=== PATIENT | female | born 1955 | race Caucasian/White ===

== ENCOUNTER 2018-04-14 15:04 | Outpatient (CLI) | payer BC | END 2018-04-14 15:05 | disposition home or self-care (01) | LOC: BICMAMMO 15:04 | PROVIDERS: ATTEND Obstetrics & Gynecology | DX: Z12.31 Encounter for screening mammogram for malignant neoplasm of breast (principal); R92.1 Mammographic calcification found on diagnostic imaging of breast | CPT/HCPCS: 77063; 77067 ==

== ENCOUNTER 2021-03-25 09:35 | Outpatient (CLI) | payer MEDICARE, BC | END 2021-03-25 09:36 | disposition home or self-care (01) | LOC: TBSIIMAG 09:35 | PROVIDERS: ATTEND Surgery | DX: M47.26 Other spondylosis with radiculopathy, lumbar region (principal); R20.8 Other disturbances of skin sensation; Z98.890 Other specified postprocedural states; M48.061 Spinal stenosis, lumbar region without neurogenic claudication | CPT/HCPCS: 72110; 72148 ==

== ENCOUNTER 2021-12-05 09:40 | Outpatient (CLI) | payer MEDICARE, BC ==
[2021-12-05 11:04] LABS: Hemoglobin 13.9 g/dL (12.0-15.5); Mean Corpuscular HGB CONC 32.5 g/dL (32.0-36.0); Mean Corpuscular Hemoglobin 30.4 pg (27.0-33.0); Mean Corpuscular Volume 93.7 fl (81.6-98.3); Mean Platelet Volume 9.5 fl (7.4-10.4); Platelet Count 335 10x3/uL (150-450); RBC Distribution Width 13.3 % (11.5-14.5); Red Blood Cell (RBC) Count 4.57 10x6/uL (3.90-5.03); White Blood Cell (WBC) Count 14.8 10x3/uL (3.5-10.5)
[2021-12-05 11:07] LABS: Anion Gap 14 mmol/L (10-20); BUN (Urea Nitrogen) 9 mg/dL (9.8-20.1); Calc. Creatinine Clearance 0 mL/min (70-130); Calcium 9.3 mg/dL (7.8-10.44); Carbon Dioxide 32 mmol/L (23-31); Chloride 97 mmol/L (98-107); Glucose 93 mg/dL (80-115); Potassium 4.2 mmol/L (3.5-5.1); Sodium 139 mmol/L (136-145)
[2021-12-05 11:09] LABS: INR-International Normal Ratio 0.9; PTT 28.1 sec (22.0-33.0); Prothrombin Time 9.7 sec (9.5-12.1)
[2021-12-05 20:11] LABS: SARS-CoV-2 PCR by NAA Not Detected (NotDetected)
== END 2021-12-05 09:41 | disposition home or self-care (01) ==
LOC: LABBT 09:40
PROVIDERS: ATTEND Surgery
DX: Z01.818 Encounter for other preprocedural examination (principal); M54.16 Radiculopathy, lumbar region; M48.062 Spinal stenosis, lumbar region with neurogenic claudication; Z20.822 Contact with and (suspected) exposure to COVID-19
CPT/HCPCS: 80048; 85027; 85610; 85730; 93005; U0003; U0005; 93010

== ENCOUNTER 2021-12-10 05:47 | Observation (INO) | payer MEDICARE, BC ==
[2021-12-10] MEDS ORDERED: Thrombin 5000 UNITS/5 ML VIAL ONE (06:46)
[2021-12-10] MEDS ORDERED: fentaNYL Citrate/PF 100 MCG/2 ML SYRINGE ONE ×2 (06:52→09:31)
[2021-12-10] MEDS ORDERED: Midazolam HCl 2 mg/2 ml Vial ONE (06:52)
[2021-12-10] MEDS ORDERED: HYDROmorphone 0.5 MG/0.5 ML SYRINGE ONE (06:52)
[2021-12-10] MEDS ORDERED: Famotidine/PF 20 mg/2ml Vial ONE (06:52)
[2021-12-10] MEDS ORDERED: ceFAZolin (BATCH) 2 GM/100 ML BAG ONE (07:09)
[2021-12-10] MEDS ORDERED: Lidocaine 1% PF 5 ML VIAL ONE (07:24)
[2021-12-10] MEDS ORDERED: PROPOFOL 200 MG/20 ML VIAL ONE (07:24)
[2021-12-10] MEDS ORDERED: Ondansetron PF 4 MG/2 ML Vial ONE (07:24)
[2021-12-10] MEDS ORDERED: Rocuronium Bromide 10 MG/ML (10ML VIAL) ONE (07:24)
[2021-12-10] MEDS ORDERED: Glycopyrrolate 0.2 MG/ML 5 ML SYRINGE ONE (07:24)
[2021-12-10] MEDS ORDERED: ePHEDrine 50 MG/ML VIAL ONE (07:24)
[2021-12-10] MEDS ORDERED: Dexamethasone 20 MG/5 ML VIAL ONE (07:24)
[2021-12-10] MEDS ORDERED: diphenhydrAMINE 50 MG/ML VIAL ONE ×2 (07:24→10:53)
[2021-12-10] MEDS ORDERED: SUGAMMADEX SODIUM 200 MG/2 ML VIAL ONE ×2 (09:42→09:43)
[2021-12-10] MEDS ORDERED: Acetaminophen/Codeine 30-300mg Tablet PO PRN (09:48)
[2021-12-10] MEDS ORDERED: traMADol HCl 50 MG TAB PO PRN (09:48)
[2021-12-10] MEDS ORDERED: Acetaminophen 325 MG TAB PO PRN (09:48)
[2021-12-10] MEDS ORDERED: Promethazine HCl 12.5 MG in Sodium Chloride 0.9% 50 ML IVPB PRN (09:51)
[2021-12-10] MEDS ORDERED: Promethazine HCl 25 MG/ML VIAL IM PRN (10:02)
[2021-12-10] MEDS ORDERED: Meperidine HCl/PF 25 MG/ML VIAL SLOW IVP PRN (10:02)
[2021-12-10] MEDS ORDERED: Ketorolac Tromethamine 30 MG/ML VIAL IVP PRN (10:02)
[2021-12-10] MEDS ORDERED: Promethazine HCl 25 MG/ML VIAL IVPB PRN (10:02)
[2021-12-10] MEDS ORDERED: HYDROmorphone 2 MG/ML VIAL SLOW IVP PRN (10:02)
[2021-12-10] MEDS ORDERED: Ondansetron HCl/PF 4 MG/2 ML Vial IVP PRN (10:02)
[2021-12-10] MEDS ORDERED: HYDROmorphone 2 MG/ML VIAL ONE (10:12)
[2021-12-10] MEDS ORDERED: Meperidine HCl/PF 25 MG/ML VIAL ONE (10:53)
[2021-12-10 12:34] VITALS: BMI 27.6
[2021-12-10] MEDS: HYDROcodone/Acetaminophen 7.5/325 mg Tablet PO PRN (13:20)
[2021-12-10] MEDS: Sodium Chloride 0.9% 1,000 ML IV SCH (13:21)
[2021-12-10] MEDS ORDERED: Milk Of Magnesia 30 ML UDCUP PO PRN (13:43)
[2021-12-10] MEDS ORDERED: Polyethylene Glycol 3350 17 GM Packet PO PRN (13:43)
[2021-12-10] MEDS ORDERED: Bisacodyl 5 MG TAB PO PRN (13:43)
[2021-12-10] MEDS ORDERED: Docusate 100 MG CAP PO SCH (13:45)
[2021-12-10] MEDS ORDERED: ceFAZolin 2 GM/Dextrose 50 ML 2 GM in Premix Bag 1 BAG IVPB SCH (15:00)
[2021-12-10] MEDS: tiZANidine HCl 4 MG TAB PO PRN (15:42)
[2021-12-10] MEDS: ceFAZolin (BATCH) 2 GM in Premix Bag 1 BAG IVPB SCH (16:26)
[2021-12-10] MEDS: Morphine 2 MG/ML VIAL SLOW IVP PRN (16:32)
[2021-12-10] MEDS: Docusate 100 MG CAP PO SCH (20:28)
[2021-12-11] MEDS: ceFAZolin (BATCH) 2 GM in Premix Bag 1 BAG IVPB SCH (00:12)
[2021-12-11] MEDS: Morphine 2 MG/ML VIAL SLOW IVP PRN (00:12)
[2021-12-11] MEDS: tiZANidine HCl 4 MG TAB PO PRN ×2 (00:12→09:01)
[2021-12-11] MEDS: Sodium Chloride 0.9% 1,000 ML IV SCH (05:12)
[2021-12-11] MEDS ORDERED: Levothyroxine Sodium 75 MCG TAB PO SCH (06:00)
[2021-12-11] MEDS: HYDROcodone/Acetaminophen 7.5/325 mg Tablet PO PRN ×2 (06:39→15:34)
[2021-12-11] MEDS ORDERED: Atenolol 50 MG TAB PO SCH (09:00)
[2021-12-11] MEDS ORDERED: Lisinopril/Hydrochlorothiazide 20/25 mg Tablet PO SCH (09:00)
[2021-12-11] MEDS ORDERED: Cholecalciferol 1,000 UNITS (25 MCG) TAB PO SCH (09:00)
[2021-12-11] MEDS: Docusate 100 MG CAP PO SCH (09:00)
[2021-12-11] MEDS ORDERED: Escitalopram Oxalate 20 mg Tablet PO SCH (09:00)
[2021-12-11] MEDS ORDERED: Multivit, Therapeutic 1 TAB PO SCH (09:00)
[2021-12-11] MEDS ORDERED: Loratadine 10 MG TAB PO SCH (09:00)
[2021-12-11 13:19] VITALS: BP 133/57; TEMP 98.2
[2021-12-11] MEDS ORDERED: Atorvastatin Calcium 10 MG TAB PO SCH (21:00)
== END 2021-12-11 16:57 | disposition home or self-care (01) ==
LOC: SDC 05:47 → MSONC 12:24
PROVIDERS: ADMIT Surgery; ATTEND Surgery
PROC: 01NB0ZZ Release Lumbar Nerve, Open Approach (ICD-10-PCS; principal; 2021-12-10)
PROC: 0SB20ZZ Excision of Lumbar Vertebral Disc, Open Approach (ICD-10-PCS; 2021-12-10)
DX: M48.062 Spinal stenosis, lumbar region with neurogenic claudication (principal); M51.16 Intervertebral disc disorders with radiculopathy, lumbar region; Z79.890 Hormone replacement therapy; Z79.899 Other long term (current) drug therapy; Z88.2 Allergy status to sulfonamides; Z91.040 Latex allergy status; Z91.048 Other nonmedicinal substance allergy status; Z98.890 Other specified postprocedural states
CPT/HCPCS: 63042; 63047; 76000; 97139; 97530; J2270 ×2; 96374; 96375; 96376; G0378; J0690; J1100; J1170; J1200; J2175; J2250; J2405; J2704; J3370; J3490; J7050; S0028

== ENCOUNTER 2022-11-08 11:00 | Emergency (ER) | payer MEDICARE, BC ==
[2022-11-08] MEDS ORDERED: Ketorolac Tromethamine 30 MG/ML VIAL ONE (11:46)
[2022-11-08] MEDS ORDERED: Acetaminophen 500 MG TAB ONE (11:46)
[2022-11-08] MEDS ORDERED: Morphine 4 MG/ML VIAL ONE (11:46)
== END 2022-11-08 13:38 | disposition home or self-care (01) ==
LOC: ERS 11:00
DX: S00.01XA Abrasion of scalp, initial encounter (principal); S30.0XXA Contusion of lower back and pelvis, initial encounter; E78.5 Hyperlipidemia, unspecified; I10 Essential (primary) hypertension; E03.9 Hypothyroidism, unspecified; F17.210 Nicotine dependence, cigarettes, uncomplicated; W17.89XA Other fall from one level to another, initial encounter; Z79.899 Other long term (current) drug therapy
CPT/HCPCS: 70450; 72125; 72131; 96374; 96375; J1885; J2270

== ENCOUNTER 2022-11-11 10:28 | Outpatient (CLI) | payer MEDICARE, BC | END 2022-11-11 10:29 | disposition home or self-care (01) | LOC: TBSIIMAG 10:28 | PROVIDERS: ATTEND Surgery | DX: M54.16 Radiculopathy, lumbar region (principal); M47.816 Spondylosis without myelopathy or radiculopathy, lumbar region; Z98.890 Other specified postprocedural states; M43.16 Spondylolisthesis, lumbar region; M48.061 Spinal stenosis, lumbar region without neurogenic claudication; M51.26 Other intervertebral disc displacement, lumbar region; S32.10XA Unspecified fracture of sacrum, initial encounter for closed fracture | CPT/HCPCS: 72120; 72148 ==

== ENCOUNTER 2023-07-14 13:01 | Outpatient (CLI) | payer MEDICARE, BC | END 2023-07-14 13:02 | disposition home or self-care (01) | LOC: RAD 13:01 | PROVIDERS: ATTEND Specialist | DX: M16.0 Bilateral primary osteoarthritis of hip (principal) ==

== ENCOUNTER 2023-07-16 10:19 | Outpatient (CLI) | payer MEDICARE, BC | END 2023-07-16 10:20 | disposition home or self-care (01) | LOC: BICMRI 10:19 | PROVIDERS: ATTEND Specialist | DX: M84.48XA Pathological fracture, other site, initial encounter for fracture (principal); M16.0 Bilateral primary osteoarthritis of hip | CPT/HCPCS: 72195 ==

== ENCOUNTER 2025-06-08 02:34 | Emergency (ER) | payer MEDICARE, BC ==
[2025-06-08 03:12] LABS: #Basophils 0.06 10x3/uL (0.0-0.2); #Eosinophils 0.10 10x3/uL (0.0-0.7); #Monocytes 1.04 10x3/uL (0.11-0.59); #Neutrophils 7.87 10x3/uL (1.40-6.50); %Basophils 0.5 % (0.0-1.0); %Eosinophils 0.9 % (0.0-10.0); %Lymphocytes 19.3 % (21.0-51.0); %Monocytes 9.1 % (0.0-10.0); %Neutrophils 68.6 % (42.0-75.0); Hematocrit 41.1 % (36.0-47.0); Hemoglobin 13.2 g/dL (12.0-16.0); Mean Corpuscular Hemoglobin 29.2 pg (27.0-31.0); Mean Corpuscular Volume 90.9 fL (78.0-98.0); Platelet Count 252 10x3/uL (130-400); Red Blood Cell (RBC) Count 4.52 mill/uL (4.20-5.40); White Blood Cell (WBC) Count 11.46 10x3/uL (4.8-10.8)
[2025-06-08 03:27] LABS: ALT (SGPT) 16 U/L (Less than 34); AST (SGOT) 23 U/L (11-34); Albumin 3.9 g/dL (3.1-4.5); Alkaline Phosphatase 64 U/L (40-110); Anion Gap 17 mmol/L (10-20); BUN (Urea Nitrogen) 7 mg/dL (9.8-20.1); Bilirubin, Total 0.2 mg/dL (0.3-1.2); Calc. Creatinine Clearance 0 mL/min (70-130); Calcium 8.4 mg/dL (7.8-10.44); Carbon Dioxide 25 mmol/L (23-31); Chloride 98 mmol/L (98-107); Globulin 3.3 g/dL (2.4-3.5); Glucose 126 mg/dL (80-115); Lipase 35 U/L (8-78); Potassium 3.4 mmol/L (3.5-5.1); Sodium 137 mmol/L (136-145)
[2025-06-08] MEDS ORDERED: Acetaminophen 500 MG TAB ONE (03:49)
[2025-06-08 05:12] LABS: Cocaine Metabolite Screen Negative (Negative); THC/Cannabinoid Screen Negative (Negative); Tricyclic Screen Negative (Negative)
[2025-06-08 05:16] LABS: Bacteria/HPF None Seen HPF (None Seen); CAUTI Indications for Culture Alt mental st,lethar; Glucose, Urine (Dipstick) Normal (Negative); Leukocyte Negative Leu/uL (Negative); Protein, Urine (Dipstick) Negative (Neg-Trace); RBC/HPF 0-3 HPF (0-3); Specific Gravity, Urine 1.005 (1.002-1.036); WBC/HPF None Seen HPF (0-3)
[2025-06-08 05:19] LABS: Urine Culture Reflex No No
[2025-06-08] MEDS ORDERED: Iopamidol 370 76% 100 ML VIAL ONE (11:06)
== END 2025-06-08 06:59 | disposition home or self-care (01) ==
LOC: ERS 02:34
DX: S01.01XA Laceration without foreign body of scalp, initial encounter (principal); J44.9 Chronic obstructive pulmonary disease, unspecified; E78.5 Hyperlipidemia, unspecified; I10 Essential (primary) hypertension; E03.9 Hypothyroidism, unspecified; F17.210 Nicotine dependence, cigarettes, uncomplicated; W01.198A Fall on same level from slipping, tripping and stumbling with subsequent striking against other object, initial encounter
CPT/HCPCS: 12002; 70450; 71260; 72125; 74177; 80053; 80306; 80307; 81001; 83690; 85025; 93005; 94760; 99284; Q9967